=== PATIENT | female | born 1960 | race Caucasian/White ===

== ENCOUNTER → 2016-06-24 | Outpatient (CLI) | payer MEDICARE | LOC: WI 08:49 | PROVIDERS: ATTEND Specialist | DX: Z12.31 Encounter for screening mammogram for malignant neoplasm of breast (principal) | CPT/HCPCS: 77063; G0202; 77067 ==

== ENCOUNTER 2016-09-20 08:56 | Day surgery (SDC) | payer MEDICARE ==
[2016-09-20 09:36] LABS: POTASSIUM 4.4 mmol/L (3.6-5.0)
[2016-09-20] MEDS ORDERED: RINGERS SOLUTION,LACTATED 1,000 ML IV PRN (10:52)
[2016-09-20] MEDS ORDERED: LIDOCAINE 0.5% INJ-PF (5 MG/ML) 50 ML SDV SUBCUT PRN (10:52)
[2016-09-20] MEDS ORDERED: FENTANYL CITRATE INJ/PF 100 MCG/2 ML AMPUL ONE (11:06)
[2016-09-20] MEDS ORDERED: KETAMINE HCL INJ 500 MG/10 ML VIAL ONE (11:06)
[2016-09-20] MEDS ORDERED: PROPOFOL INJ 200 MG/20 ML VIAL IV ONE (11:07)
[2016-09-20] MEDS ORDERED: DEXMEDETOMIDINE INJ 80 MCG/20 ML VIAL IV ONE (11:07)
[2016-09-20] MEDS ORDERED: MIDAZOLAM 2 MG/2 ML INJ ONE (11:07)
[2016-09-20] MEDS ORDERED: DEXTROSE 5%-1/2 NORMAL SALINE 1,000 ML IV PRN (12:00)
[2016-09-20] MEDS ORDERED: ACETAMINOPHEN 325 MG TABLET PO PRN (12:01)
[2016-09-20] MEDS ORDERED: SIMETHICONE 80 MG TAB.CHEW PO PRN (12:05)
[2016-09-20] MEDS ORDERED: PROMETHAZINE HCL INJ 50 MG/1 ML VIAL IM PRN (12:08)
--- NOTE | 2016-09-20 12:28 | Operative Report ---
Operative Report DATE OF SURGERY: 09/20/16 Operative Report: The risks, benefits and alternatives of the procedure including risks of bleeding, perforation requiring surgery are explained to the patient detail and informed consent was obtained. Patient was taken to the operating room. Timeout was called. Propofol medications administered. A rectal examination was done which did not reveal any masses, tears or fissures. An Olympus video scope was inserted into the patient's rectum. The scope was then gradually advanced all the way to the cecum. The cecum was identified by the usual anatomical landmarks including the ileocecal valve as well as the appendiceal office. Photodocumentation is obtained. Prep is good. Scope was then sequentially pulled back. The rest segments of the colon including the ascending colon, hepatic flexure, transverse colon, splenic flexure, descending colon and finding to the rectosigmoid portions of the colon. Retroflexion maneuver was performed. The risks benefits and alternatives of the procedure explained to the patient in detail and informed consent is obtained.A GIF Olympus video scope was inserted into the patient's mouth and hypopharynx, the esophagus is identified intubated and insufflated, the scope was then advanced through the esophagus stomach and duodenum, retroflexion maneuver is done ,the esophagus stomach and first and second portions of the duodenum examined PREOPERATIVE DIAGNOSIS: Possible GI bleeding POSTOPERATIVE DIAGNOSIS: Mild right-sided inflammation status post biopsy. Internal hemorrhoids. Gastritis status post biopsy OPERATION: Colonoscopy with biopsy. EGD with biopsy SURGEON: KIKO HANCOCK ANESTHESIA: LMAC TISSUE REMOVED OR ALTERED: Gastric mucosal specimen obtained. Right side colon Mucosal specimens obtained COMPLICATIONS: None. ESTIMATED BLOOD LOSS: None. INTRAOPERATIVE FINDINGS: As described above. PROCEDURE: Patient tolerated the procedure well. No immediate postprocedure complications are noted. Patient discharged in good condition. Discharge date September 20, 2016. Discharge diet: Regular. Discharge activity: Regular. 2-3 week follow-up to discuss findings. We will wait on biopsies. Patient is instructed to call the office or proceed to the emergency room should there be any further problems or questions.
--- NOTE | 2016-09-20 12:29 | Operative Report ---
Operative Report DATE OF SURGERY: 09/20/16 PREOPERATIVE DIAGNOSIS: Possible GI bleeding POSTOPERATIVE DIAGNOSIS: Mild right-sided inflammation status post biopsy. Internal hemorrhoids. Gastritis status post biopsy OPERATION: Colonoscopy with biopsy. EGD with biopsy SURGEON: KIKO HANCOCK ANESTHESIA: LMAC TISSUE REMOVED OR ALTERED: Gastric mucosal specimen obtained. Right side colon Mucosal specimens obtained ESTIMATED BLOOD LOSS: None. INTRAOPERATIVE FINDINGS: As described above.
[2016-09-20 13:39] VITALS: BP 143/72
[2016-09-20] MEDS ORDERED: ONDANSETRON HCL INJ/PF 4 MG/2 ML SDV ONE (15:26)
[2016-09-20] MEDS ORDERED: GLYCOPYRROLATE INJ 0.4 MG/2 ML VIAL ONE (15:26)
[2016-09-20] MEDS ORDERED: METOCLOPRAMIDE HCL INJ/PF 10 MG/2 ML SDV ONE (15:26)
[2016-09-20] MEDS ORDERED: LIDOCAINE 2% INJ-PF (20 MG/ML) 10 ML AMPUL ONE (15:26)
== END 2016-09-20 13:30 | disposition home or self-care (01) ==
LOC: OROUT 08:56
PROVIDERS: ATTEND Internal Medicine Gastroenterology
PROC: 0DB68ZX Excision of Stomach, Via Natural or Artificial Opening Endoscopic, Diagnostic (ICD-10-PCS; principal; 2016-09-20 11:15)
PROC: 0DBF8ZX Excision of Right Large Intestine, Via Natural or Artificial Opening Endoscopic, Diagnostic (ICD-10-PCS; 2016-09-20 11:15)
DX: K29.50 Unspecified chronic gastritis without bleeding (principal); B96.81 Helicobacter pylori [H. pylori] as the cause of diseases classified elsewhere; K52.9 Noninfective gastroenteritis and colitis, unspecified; K64.8 Other hemorrhoids; J45.909 Unspecified asthma, uncomplicated; I10 Essential (primary) hypertension; E78.5 Hyperlipidemia, unspecified; M19.90 Unspecified osteoarthritis, unspecified site; E11.9 Type 2 diabetes mellitus without complications; E03.9 Hypothyroidism, unspecified; D64.9 Anemia, unspecified; Z79.899 Other long term (current) drug therapy; Z79.82 Long term (current) use of aspirin; Z79.84 Long term (current) use of oral hypoglycemic drugs; Z88.8 Allergy status to other drugs, medicaments and biological substances; Z79.51 Long term (current) use of inhaled steroids
CPT/HCPCS: 43239; 45380; 36415; 82947; 84132; 88342 ×2; 88305 ×2; J2250; J3490 ×3; J2765; J2405; J2704; 810; J3010

== ENCOUNTER → 2017-01-07 | Outpatient (CLI) | payer MEDICARE ==
--- NOTE | 2017-01-07 10:00 | WOMENS IMAGING REPORT ---
EXAM DESCRIPTION: 3D DX MAMMO LEFT UNILAT COMPLETED DATE/TIME: 01/07/2017 9:50 am REASON FOR STUDY: INTRADUCTAL CARCINOMA D05.12 INTRADUCTAL CARCINOMA IN SITU OF LEFT BREAST COMPARISON: 06/24/2016 and 02/20/2016. TECHNIQUE: Standard craniocaudal and mediolateral oblique images of the breast recorded using digita l acquisition and breast tomosynthesis. Additional true lateral images of the breast also acquired. LIMITATIONS: None. FINDINGS: BREAST: left MASSES: No suspicious masses. CALCIFICATIONS: No new or suspicious calcifications. ARCHITECTURAL DISTORTION: Stable surgical changes. DEVELOPING DENSITY: None. ASYMMETRY: None noted. OTHER: No other significant findings. Read with the assistance of CAD. .[facility] - R2 Cenova Version 1.3 .[facility] - R2 Cenova Version 1.3 .[facility] - R2 Cenova Version 2.4 .[facility] - R2 Cenova Version 2.4 .[facility] - R2 Lead Material Handler Version 9.2 IMPRESSION: Stable mammographic appearance of the left breast. Stable surgical changes. No worriso me findings. BREAST DENSITY: b. There are scattered areas of fibroglandular density. BIRAD: 2 Benign findings. RECOMMENDATION: RECOMMENDED FOLLOW UP: Post lumpectomy protocol. Note that the patient will be due for routine annual screening mammography of the right breast in 6 months (June 2017). COMMENT: The patient has been notified of the results by letter per SA requirements. Additional no tification policies are in place for contacting patient with suspicious or incomplete findings. Quality ID #225: The [employer] recommends an annual screening mammogram for women aged 40 years or over. This facility utilizes a reminder system to ensure that all patients receive reminder letters, and/or direct phone calls for appointments. This includes reminders for routine scr eening mammograms, diagnostic mammograms, or other Breast Imaging Interventions when appropriate. Th is patient will be placed in the appropriate reminder system. The [employer] (ACR) has developed recommendations for screening MRI of the breast s in certain patient populations, to be used in conjunction with mammography. Breast MRI surveillanc e may be appropriate for women with more than 20% lifetime risk of developing breast cancer as deter mined by genetic testing, significant family history of the disease, or history of mantle radiation f or Hodgkins Disease. ACR Practice Guidelines 2008. DBT Technology DBT is a type of tomographic mammography. With conventional mammography, overlapping breast tissue ma y make lesions difficult to detect, even with good compression. DBT uses an x-ray tube that rotates a round the breast, taking images at different angles. These images are then combined to create thin sl ices of the breast that the radiologist can view as a 3D reconstruction. The [employer]ologic unit can perform full-field digital mammograms (2D imaging); or DBT (3D imaging); or both, in a combination mode that quickly performs both the mammogram and the tomosynthesis scan while the breast is still compressed. PQRS 6045F: Fluoroscopic imaging is not utilized for breast tomosynthesis. TECHNICAL DOCUMENTATION: FINDING NUMBER: (1) ASSESSMENT: (1) JOB ID: [id number] [employer]- All Rights Reserved
== END ==
LOC: WI 08:18
PROVIDERS: ATTEND Internal Medicine
DX: D05.10 Intraductal carcinoma in situ of unspecified breast (principal)
CPT/HCPCS: G0279; G0206

== ENCOUNTER → 2017-02-03 | Outpatient (CLI) | payer MEDICARE ==
--- NOTE | 2017-02-03 10:36 | RADIOLOGY REPORT (SQ) ---
EXAM DESCRIPTION: CT HEAD WITHOUT COMPLETED DATE/TIME: 02/03/2017 9:19 am REASON FOR STUDY: NUMBNESS AND TINGLING OF RIGHT ARM R20.0 ANESTHESIA OF SKIN COMPARISON: None. TECHNIQUE: Axial images acquired through the brain without intravenous contrast. Images reviewed wi th bone, brain and subdural windows. Images stored on PACS. All CT scanners at this facility use dose modulation, iterative reconstruction, and/or weight based d osing when appropriate to reduce radiation dose to as low as reasonably achievable (ALARA). [facility]: Dose Right [facility]: CareDose [facility]: Dose Right [facility]: Teradose 4D [facility]: Smart plista RADIATION DOSE: Up-to-date CT equipment and radiation dose reduction techniques were employed. CTDIv ol: 49.0 mGy. DLP: 881 mGy-cm. mGy. LIMITATIONS: None. FINDINGS: VENTRICLES: Normal size and contour. CEREBRUM: No masses. No hemorrhage. No midline shift. No evidence for acute infarction. Normal gra y/white matter differentiation. No areas of low density in the white matter. CEREBELLUM: No masses. No hemorrhage. No alteration of density. No evidence for acute infarction. EXTRAAXIAL SPACES: No fluid collections. No masses. ORBITS AND GLOBE: No intra- or extraconal masses. Normal contour of globe without masses. CALVARIUM: No fracture. PARANASAL SINUSES: No fluid or mucosal thickening. SOFT TISSUES: No mass or hematoma. OTHER: No other significant finding. IMPRESSION: NORMAL BRAIN CT WITHOUT CONTRAST. EVIDENCE OF ACUTE STROKE: NO. COMMENT: Quality ID # [id number]: Final reports with documentation of one or more dose reduction techniques (e.g., Automated exposure control, adjustment of the mA and/or kV according to patient size, use of iterative reconstruction technique) TECHNICAL DOCUMENTATION: JOB ID: [id number] [employer]- All Rights Reserved
== END ==
LOC: RAD 09:06
PROVIDERS: ATTEND Physician Assistant
DX: R20.0 Anesthesia of skin (principal)
CPT/HCPCS: 70450

== ENCOUNTER → 2017-05-16 | Outpatient (CLI) | payer MEDICARE ==
--- NOTE | 2017-05-16 10:12 | RADIOLOGY REPORT (SQ) ---
EXAM DESCRIPTION: CHEST PA/LAT COMPLETED DATE/TIME: 05/16/2017 9:09 am REASON FOR STUDY: MODERATE PERSISTENT ASTHMA WITH (ACUTE) EXACERBATION (J45.41) COMPARISON: 05/31/2015. EXAM PARAMETERS: NUMBER OF VIEWS: two views TECHNIQUE: Digital Frontal and Lateral radiographic views of the chest acquired. RADIATION DOSE: NA LIMITATIONS: none FINDINGS: LUNGS AND PLEURA: No opacities, masses or pneumothorax. No pleural effusion. MEDIASTINUM AND HILAR STRUCTURES: No masses or contour abnormalities. HEART AND VASCULAR STRUCTURES: Heart normal size. No evidence for failure. BONES: No acute findings. HARDWARE: None in the chest. OTHER: No other significant finding. IMPRESSION: NO SIGNIFICANT RADIOGRAPHIC FINDING IN THE CHEST. TECHNICAL DOCUMENTATION: JOB ID: [id number] [employer]- All Rights Reserved
== END ==
LOC: RAD 08:54
PROVIDERS: ATTEND Nurse Practitioner Family
DX: J45.41 Moderate persistent asthma with (acute) exacerbation (principal)
CPT/HCPCS: 71046

== ENCOUNTER → 2017-06-25 | Outpatient (CLI) | payer MEDICARE ==
--- NOTE | 2017-06-25 10:37 | WOMENS IMAGING REPORT ---
EXAM DESCRIPTION: 3D DX MAMMO BILAT COMPLETED DATE/TIME: 06/25/2017 9:38 am REASON FOR STUDY: D05.10 INTRADUCTAL CARCINOMA IN SITU OF UNSPEC BREAST M81.0 AGE-RELATED OSTEOPORO SIS W/O CURRENT PATHOLOGICAL FRAC D05.12 INTRADUCTAL CARCINOMA IN SITU OF LEFT BREAST COMPARISON: 01/07/2017, 06/24/2016, 06/22/2015. TECHNIQUE: Standard craniocaudal and mediolateral oblique views of each breast recorded using digita l acquisition and breast tomosynthesis. Additional true lateral images of the left breast acquired with tomosynthesis. LIMITATIONS: None. FINDINGS: RIGHT BREAST MASSES: No suspicious masses. CALCIFICATIONS: No new or suspicious calcifications. ARCHITECTURAL DISTORTION: None. DEVELOPING DENSITY: None. ASYMMETRY: None noted. OTHER: No other significant findings. LEFT BREAST MASSES: No suspicious masses. CALCIFICATIONS: Benign calcifications. ARCHITECTURAL DISTORTION: Stable surgical changes. DEVELOPING DENSITY: None. ASYMMETRY: None noted. OTHER: No other significant finding. Read with the assistance of CAD: .[facility] - R2 Cenova Version 1.3 .[facility] - R2 Cenova Version 1.3 .[facility] - R2 Cenova Version 2.4 .[facility] - R2 Cenova Version 2.4 .[facility] - R2 Reproduction Artist Version 9.2 IMPRESSION: Stable mammographic appearance of both breasts. Stable surgical changes in the left bree ast. No worrisome findings. BREAST DENSITY: b. There are scattered areas of fibroglandular density. BIRAD: 2 Benign findings. RECOMMENDATION: RECOMMENDED FOLLOW UP: Post lumpectomy protocol. COMMENT: The patient has been notified of the results by letter per SA requirements. Additional no tification policies are in place for contacting patient with suspicious or incomplete findings. Quality ID #225: The [employer] recommends an annual screening mammogram for women aged 40 years or over. This facility utilizes a reminder system to ensure that all patients receive reminder letters, and/or direct phone calls for appointments. This includes reminders for routine scr eening mammograms, diagnostic mammograms, or other Breast Imaging Interventions when appropriate. Th is patient will be placed in the appropriate reminder system. The [employer] (ACR) has developed recommendations for screening MRI of the breast s in certain patient populations, to be used in conjunction with mammography. Breast MRI surveillanc e may be appropriate for women with more than 20% lifetime risk of developing breast cancer as deter mined by genetic testing, significant family history of the disease, or history of mantle radiation f or Hodgkins Disease. ACR Practice Guidelines 2008. DBT Technology DBT is a type of tomographic mammography. With conventional mammography, overlapping breast tissue ma y make lesions difficult to detect, even with good compression. DBT uses an x-ray tube that rotates a round the breast, taking images at different angles. These images are then combined to create thin sl ices of the breast that the radiologist can view as a 3D reconstruction. The [employer] unit can perform full-field digital mammograms (2D imaging); or DBT (3D imaging); or both, in a combination mode that quickly performs both the mammogram and the tomosynthesis scan while the breast is still compressed. PQRS 6045F: Fluoroscopic imaging is not utilized for breast tomosynthesis. TECHNICAL DOCUMENTATION: FINDING NUMBER: (1) ASSESSMENT: (1) JOB ID: [id number] [employer]- All Rights Reserved Reading location - IP/workstation name: [facility]
--- NOTE | 2017-06-25 10:43 | WOMENS IMAGING REPORT ---
EXAM DESCRIPTION: BONE DENSITY HIP/SPINE COMPLETED DATE/TIME: 06/25/2017 9:38 am REASON FOR STUDY: M81.0 OSTEOPOROSIS M81.0 AGE-RELATED OSTEOPOROSIS W/O CURRENT PATHOLOGICAL FRAC D 05.12 INTRADUCTAL CARCINOMA IN SITU OF LEFT BREAST COMPARISON: None. TECHNIQUE: Dual-Energy X-ray Absorptiometry (DEXA) of the AP Spine and Hip. LIMITATIONS: None. FINDINGS: LUMBAR SPINE: The bone mineral density (BMD) measured from L1-L4 in the AP projection correlates with a T-score of -0.1, which is normal as defined by the World Health Organization. HIP: The bone mineral density (BMD) measured in the left hip correlates with a T-score of 0.1, which is no rmal as defined by the World Health Organization. IMPRESSION: 1. LUMBAR SPINE: NORMAL. 2. HIP: NORMAL. COMMENT: The World Health Organization defines low BMD as follows: T-score: Normal: Greater than -1.0 Osteopenia: Between -1.0 and -2.5 Osteoporosis: Less than -2.5 without fractures Established osteoporosis: Less than -2.5 with fractures In general, you may wish to consider: Diagnosis Treatment Follow-up DEXA Normal BMD Prevention 2-3 years Osteopenia Prevention/Therapy 1-2 years Osteoporosis Therapy Yearly TECHNICAL DOCUMENTATION: JOB ID: [id number] [employer]- All Rights Reserved Reading location - IP/workstation name: [email or web address]
== END ==
LOC: WI 08:59
PROVIDERS: ATTEND Internal Medicine Hematology & Oncology
DX: M81.0 Age-related osteoporosis without current pathological fracture (principal); D05.12 Intraductal carcinoma in situ of left breast
CPT/HCPCS: 77066; 77080; G0279; 77062

== ENCOUNTER → 2017-08-22 | Outpatient (CLI) | payer MEDICARE ==
--- NOTE | 2017-08-22 11:00 | RADIOLOGY REPORT (SQ) ---
EXAM DESCRIPTION: CT SINUSES FOR ENT COMPLETED DATE/TIME: 08/22/2017 9:11 am REASON FOR STUDY: J32.9 CHRONIC SINUSITIS, UNSPECIFIED J32.9 CHRONIC SINUSITIS, UNSPECIFIED COMPARISON: CT brain 02/03/2017 TECHNIQUE: Noncontrast scanning through the paranasal sinuses using bone algorithm. Reconstructed MPR images reviewed. All images stored on PACS. Images acquired for image guided surgery. All CT scanners at this facility use dose modulation, iterative reconstruction, and/or weight based d osing when appropriate to reduce radiation dose to as low as reasonably achievable (ALARA). [facility]: Dose Right [facility]: CareDose [facility]: Dose Right [facility]: Teradose 4D [facility]: Voölks RADIATION DOSE: 47 mGy. FINDINGS: NASAL PASSAGES: Clear. No polyps or masses. OSTEOMEATAL UNITS AND NASOFRONTAL DUCTS: Opacified with fluid and mucous membrane thickening. MAXILLARY SINUSES: Near completely opacified bilaterally with opacified maxillary sinus outlets ETHMOID SINUSES: Completely opacified ethmoid air cells SPHENOID SINUSES: Hypoplastic sphenoid sinuses with circumferential mucous membrane thickening, best shown on sagittal images 144-160. No sphenoethmoid air cells or pneumatized pterygoid recess. No pne umatized dorsal sella. FRONTAL SINUSES: Hypoplastic right frontal sinus completely opacified. No left frontal sinus. MASTOID AIR CELLS: There is bilateral middle ear and mastoid air cell fluid. No aggressive bony nadya neralization of the ossicles or scutum. Internal auditory canals, inner ear structures grossly intac t ORBITS: Normal and symmetrical. NASAL SEPTUM: Mild left nasal septal deviation with small left nasal septal spur TEMPOROMANDIBULAR JOINTS: Normal. TURBINATES: No pneumatized turbinates. MUCOPERIOSTEAL THICKENING: No. MUCOCELE: No. OTHER: No other significant findings. IMPRESSION: Diffuse inflammatory changes throughout the paranasal sinuses, middle ear cavities and m astoid air cells TECHNICAL DOCUMENTATION: JOB ID: [id number] Quality ID # [id number]: Final reports with documentation of one or more dose reduction techniques (e.g., Au tomated exposure control, adjustment of the mA and/or kV according to patient size, use of iterative reconstruction technique) 2010 [employer]- All Rights Reserved Reading location - IP/workstation name: [facility]
== END ==
LOC: RAD 09:08
PROVIDERS: ATTEND Otolaryngology
DX: J32.9 Chronic sinusitis, unspecified (principal)
CPT/HCPCS: 70486

== ENCOUNTER → 2017-10-07 | Outpatient (CLI) | payer MEDICARE ==
--- NOTE | 2017-10-07 09:44 | RADIOLOGY REPORT (SQ) ---
EXAM DESCRIPTION: CT CHEST WITH COMPLETED DATE/TIME: 10/07/2017 9:32 am REASON FOR STUDY: INRADUCTAL CARCINOMA IN SITU OF UNSPEC BREAST (D05.10), SOB (R06.02), COUGH D05.10 INTRADUCTAL CARCINOMA IN SITU OF UNSPECIFIED BREAST R06.02 SHORTNESS OF BREATH R05 COUGH COMPARISON: CT chest 08/30/2015 Multiple mammograms since 2015 TECHNIQUE: CT scan of the chest performed using helical scanning technique with dynamic intravenous contrast injection. Images reviewed with lung, soft tissue and bone windows. Reconstructed coronal and sagittal MPR images reviewed. All images stored on PACS. All CT scanners at this facility use dose modulation, iterative reconstruction, and/or weight based d osing when appropriate to reduce radiation dose to as low as reasonably achievable (ALARA). [facility]: Dose Right [facility]: CareDose [facility]: Dose Right [facility]: Teradose 4D [facility]: iogyn CONTRAST TYPE AND DOSE: contrast/concentration: Isovue 370.00 mg/ml; Total Contrast Delivered: 80.0 ml; Total Saline Delivered: 55.0 ml RENAL FUNCTION: Creatinine 0.5 RADIATION DOSE: CT Rad equipment meets quality standard of care and radiation dose reduction techniq ues were employed. CTDIvol: 19.5 mGy. DLP: 758 mGy-cm. . LIMITATIONS: None. FINDINGS: LUNGS AND PLEURA: No opacities, nodules, masses. No pneumothorax. No effusions. HILAR AND MEDIASTINAL STRUCTURES: No identified masses or abnormal nodes. HEART AND VASCULAR STRUCTURES: No aneurysm or dissection. No central pulmonary emboli. No pericardi al effusion. HARDWARE: None in the chest. UPPER ABDOMEN: Fatty liver. Small hiatal hernia. THYROID AND OTHER SOFT TISSUES: Thyroid unremarkable. Stable post therapeutic changes upper outer qu adrant left breast BONES: No significant finding. OTHER: No other significant finding. IMPRESSION: POST THERAPEUTIC CHANGES LEFT UPPER OUTER QUADRANT BREAST. OTHERWISE, NORMAL CT OF THE CHEST WITH IV CONTRAST. TECHNICAL DOCUMENTATION: JOB ID: [id number] Quality ID # [id number]: Final reports with documentation of one or more dose reduction techniques (e.g., Au tomated exposure control, adjustment of the mA and/or kV according to patient size, use of iterative reconstruction technique) 2010 [employer]- All Rights Reserved Reading location - IP/workstation name: [facility]
== END ==
LOC: RAD 09:06
PROVIDERS: ATTEND Internal Medicine Hematology & Oncology
DX: D05.12 Intraductal carcinoma in situ of left breast (principal); R06.02 Shortness of breath; R05 Cough
CPT/HCPCS: 71260; 82565

== ENCOUNTER 2017-12-26 05:29 | Day surgery (SDC) | payer MEDICARE ==
[2017-12-24 12:49] LABS: HEMATOCRIT 40.2 % (36.0-47.0); HEMOGLOBIN 13.6 g/dL (12.0-15.5); MEAN CORPUSCULAR HEMOGLOBIN 26.8 pg (27.0-33.4); MEAN CORPUSCULAR HGB CONC 33.7 g/dL (32.0-36.0); MEAN CORPUSCULAR VOLUME 80 fl (80-97); PLATELET COUNT 272 10^3/uL (150-450); RED BLOOD COUNT 5.06 10^6/uL (3.72-5.28); RED CELL DISTRIBUTION WIDTH 17.5 % (11.5-14.0); WHITE BLOOD COUNT 11.1 10^3/uL (4.0-10.5)
[2017-12-24 13:20] LABS: ANION GAP 12 (5-19); BLOOD UREA NITROGEN 13 mg/dL (7-20); CALCIUM 9.3 mg/dL (8.4-10.2); CARBON DIOXIDE 28 mmol/L (22-30); CHLORIDE 101 mmol/L (98-107); GLUCOSE 111 mg/dL (75-110); POTASSIUM 4.1 mmol/L (3.6-5.0); SODIUM 141.3 mmol/L (137-145)
--- NOTE | 2017-12-24 13:53 | EKG REPORT ---
SEVERITY:- NORMAL ECG - SINUS RHYTHM : Confirmed by: Boubacar Serna MD 24-Dec-2017 13:52:35
[~2017-12-26 05:29] MED LIST: CEFAZOLIN 2 GM/D5W RTU 2 GM/50 ML RTUPB IV ONE; CEFAZOLIN 2 GM/D5W RTU 2 GM/50 ML RTUPB IV PRN; LACTATED RINGERS 1000 ML IV PRN; LIDOCAINE 0.5% INJ-PF (5 MG/ML) 50 ML SDV SUBCUT PRN
--- NOTE | 2017-12-26 06:04 | RADIOLOGY REPORT (SQ) ---
EXAM DESCRIPTION: XR CHEST 1 VIEW COMPLETED DATE/TME: 12/26/2017 00:00 CLINICAL HISTORY: 57 years Female, preop screening COMPARISON: Generated [id number]. NUMBER OF VIEWS/TECHNIQUE: 1/AP FINDINGS: Adequate lung volume, clear parenchyma, normal cardiac silhouette, atherosclerosis, and intact bony thorax. IMPRESSION: No acute cardiopulmonary findings.
[2017-12-26] MEDS ORDERED: ALBUTEROL SULFATE 0.083% NEB 2.5 MG/3 ML AMPUL NEB ONE (06:05)
[2017-12-26 06:32] LABS: POTASSIUM 3.9 mmol/L (3.6-5.0)
[2017-12-26] MEDS ORDERED: FENTANYL CITRATE INJ/PF 250 MCG/5 ML AMPULE ONE (07:11)
[2017-12-26] MEDS ORDERED: MIDAZOLAM 2 MG/2 ML INJ ONE (07:11)
[2017-12-26] MEDS ORDERED: HYDROMORPHONE HCL INJ/PF 2 MG/ML AMPULE ONE (07:11)
[2017-12-26] MEDS ORDERED: EPHEDRINE SULFATE INJ 50 MG/1 ML AMPULE ONE (07:12)
[2017-12-26] MEDS ORDERED: PROPOFOL INJ 200 MG/20 ML VIAL IV ONE (07:12)
[2017-12-26] MEDS ORDERED: ACETAMINOPHEN 1,000 MG/100 ML RTUPB IV ONE (07:12)
[2017-12-26] MEDS ORDERED: FAMOTIDINE INJ/PF 20 MG/2 ML SDV IV ONE (07:12)
[2017-12-26] MEDS ORDERED: METOCLOPRAMIDE HCL INJ/PF 10 MG/2 ML SDV ONE (07:14)
[2017-12-26] MEDS ORDERED: BUPIVACAINE HCL 0.5%/EPI 1:200000 INJ 1.8 ML CARTRIDGE ONE (07:17)
[2017-12-26] MEDS ORDERED: BUPIVACAINE HCL 0.5%-EPI 1:200000 INJ/PF 30 ML VIAL ONE (07:17)
[2017-12-26] MEDS ORDERED: OXYMETAZOLINE HCL 0.05% NASAL SPRAY 15 ML BOTTLE ONE ×2 (07:20→11:50)
[2017-12-26] MEDS ORDERED: CIPROFLOXACIN HCL/FLUOCINOLONE 0.3%/0.025% OTIC ONE (07:28)
[2017-12-26] MEDS ORDERED: MINERAL OIL (STERILE) 10 ML VIAL ONE (07:28)
[2017-12-26] MEDS ORDERED: ALBUTEROL SULFATE HFA (90 MCG/PUFF) 200 PUFF/8.5 GM MDI IH ONE (07:53)
[2017-12-26] MEDS ORDERED: BACITRACIN ZINC OINTMENT 15 GM ONE (11:34)
[2017-12-26] MEDS ORDERED: MEPERIDINE HCL/PF INJ 25 MG/1 ML DISP.SYRIN IV PRN (11:39)
[2017-12-26] MEDS ORDERED: PROMETHAZINE HCL INJ 25 MG/1 ML VIAL IV PRN ×3 (11:39→13:15)
[2017-12-26] MEDS ORDERED: OXYCODONE-ACETAMINOPHEN 5-325 MG TABLET PO PRN ×2 (11:39)
[2017-12-26] MEDS ORDERED: DIPHENHYDRAMINE HCL 50 MG/ML VIAL IV PRN (11:39)
[2017-12-26] MEDS ORDERED: MORPHINE SULFATE 10 MG/ML INJ IV PRN ×2 (11:39→13:15)
[2017-12-26] MEDS ORDERED: FENTANYL CITRATE INJ/PF 100 MCG/2 ML AMPUL IV PRN ×3 (11:39)
[2017-12-26] MEDS ORDERED: ONDANSETRON HCL INJ/PF 4 MG/2 ML SDV IV PRN (13:15)
[2017-12-26] MEDS ORDERED: PHENYLEPHRINE HCL INJ/PF 10 MG/1 ML SDV ONE (14:56)
[2017-12-26] MEDS ORDERED: GLYCOPYRROLATE 1 MG/5 ML SYRINGE ONE (14:56)
[2017-12-26] MEDS ORDERED: ONDANSETRON HCL INJ/PF 4 MG/2 ML SDV ONE (14:56)
[2017-12-26] MEDS ORDERED: SUCCINYLCHOLINE CHLORIDE INJ 200 MG/10 ML VIAL ONE (14:56)
[2017-12-26] MEDS ORDERED: DEXAMETHASONE SOD PHOSPHATE INJ 4 MG/1 ML VIAL ONE (14:56)
[2017-12-26] MEDS ORDERED: ROCURONIUM BROMIDE INJ 50 MG/5 ML VIAL IV ONE (14:56)
[2017-12-26] MEDS ORDERED: ONDANSETRON 4 MG TAB.RAPDIS PO PRN (15:44)
[2017-12-26] MEDS: HYDROCODONE/ACETAMINOPHEN 5-325 MG TABLET PO PRN (17:47)
[2017-12-26] MEDS: RINGERS SOLUTION,LACTATED 1,000 ML IV PRN ×2 (17:50→20:55)
[2017-12-27] MEDS: HYDROCODONE/ACETAMINOPHEN 5-325 MG TABLET PO PRN (04:35)
[2017-12-27] MEDS: RINGERS SOLUTION,LACTATED 1,000 ML IV PRN (06:24)
[2017-12-27 09:36] VITALS: BP 113/50
--- NOTE | 2017-12-29 11:02 | OPERATIVE REPORT E ---
Operative Report NAME: SANJAY OROZCO : 1960 AGE: 57Y DATE OF SURGERY: 12/26/2017 ROOM: 206 PREOPERATIVE DIAGNOSES: 1. Acute recurrent sinusitis. 2. Chronic sinusitis. 3. Sinonasal polyps/polyp disease. 4. Nasoseptal deviation, acquired. 5. Chronic nasal dyspnea. 6. Bilateral inferior turbinate hypertrophy. 7. Bilateral middle turbinate hypertrophy. 8. Chronic bilateral eustachian tube dysfunction. 9. Bilateral middle ear serous effusions/chronic otitis media with effusions. 10. Chronic hearing loss. POSTOPERATIVE DIAGNOSES: 1. Acute recurrent sinusitis. 2. Chronic sinusitis. 3. Sinonasal polyps/polyp disease. 4. Nasoseptal deviation, acquired. 5. Chronic nasal dyspnea. 6. Bilateral inferior turbinate hypertrophy. 7. Bilateral middle turbinate hypertrophy. 8. Chronic bilateral eustachian tube dysfunction. 9. Bilateral middle ear serous effusions/chronic otitis media with effusions. 10. Chronic hearing loss. OPERATIONS PERFORMED: 1. Image guidance functional endoscopic sinus surgery via bilateral transnasal rigid surgical endoscopy as follows: 2. Bilateral maxillary antrostomies via bilateral transnasal rigid surgical endoscopy. 3. Bilateral total ethmoidectomies (anterior and posterior ethmoidectomies) with tissue removal for pathology evaluation and this was performed via bilateral transnasal rigid surgical endoscopy. 4. Right transnasal/intranasal frontal sinus sinusotomy via right transnasal rigid surgical endoscopy. 5. Bilateral eustachian tube balloon plasty via bilateral transnasal rigid surgical endoscopy. 6. Bilateral image guidance transnasal/intranasal sphenoid balloon Sinuplasty via bilateral transnasal rigid surgical endoscopy. 7. Septoplasty. 8. Bilateral inferior turbinate reduction using a submucous resection technique. 9. Bilateral middle turbinate reductions via bilateral transnasal rigid surgical endoscopy. 10. Bilateral myringotomies under microscopy with suctioning/evacuation of serous middle ear effusions. 11. Excessive time required for patient positioning before and during surgery due to excessive obesity with BMI of 141.5. SURGEON: STEF VALLEJO D.O. FINDINGS: 1. There was sinonasal polyps/polyp tissue noted around the area of the middle turbinates and OMC areas. 2. Left nasal septal deviation involving bone and cartilage. 3. Bilateral inferior turbinate hypertrophy. 4. Bilateral middle turbinate hypertrophy. 5. Bilateral serous-appearing middle ear effusions that were completely filling the middle ear space. The tympanic membranes were otherwise intact. 6. Sinonasal polyps/polyp disease was also noted in the area of the ethmoid sinus distribution bilateral. 7. Large left maxillary crest/septal spur. ANESTHETIC: General endotracheal tube. ANESTHESIA STAFF: VIVIANA SANDERS ESTIMATED BLOOD LOSS: 100 mL. FLUIDS: 3200 mL. URINE OUTPUT: 600 mL. COMPLICATIONS: None. DRAINS: None. COUNTS: Sponge count verified. Needle count verified. MATERIALS FORWARDED SPECIMEN: Left and right nasal passage/OMC/ethmoid area polyp tissue for rule out sinonasal polyps. INDICATIONS: This is a 57-year-old white female patient who was seen and evaluated in the [facility] office. The patient had been referred for and she complained of a history of chronic sinus, nasal, allergy, and ear disease/problems over the years. The patient reported a history of acute recurrent sinusitis episodes requiring antibiotics each year over the years as well as chronic sinus disease symptoms/sinusitis over the years. The patient also complains of chronic ear disease with middle ear effusions over the years, which cause difficulty with hearing. The patient complains of symptoms consistent with chronic eustachian tube dysfunction and allergies. The patient also complains of chronic nasal dyspnea over the years. The patient underwent extensive workup to include clinic flexible endoscopy and CT sinus imaging. There was a very extensive discussion with the patient to address the sinus, nasal, ear, eustachian tube complex, and allergy disease processes. Recommendation and plan was for image guidance, functional endoscopic sinus surgery, septoplasty, inferior and middle turbinate reductions, eustachian tube balloon plasty, and evaluation under microscopy of the ears with performance of myringotomy incisions with evacuation/suctioning of the middle ear effusions versus placement of ear tubes/BMTT. The patient voiced an understanding of all that had been discussed and was in agreement. The risks and complications of all of the procedures were all discussed in detail with the patient. She voiced an understanding of the described surgical plan, agreed to proceed, and consent was obtained. PROCEDURE: The patient was taken to the main operating room and placed on the operating room table in the supine position. Appropriate monitors were placed. Of note, there was excessive time involved with getting the patient transitioned onto the operating room table and positioned appropriately for general anesthesia, intubation, and surgery due to her excessive obesity and body habitus with BMI of 141.5. Once the patient was safely positioned and secured on the operating room table, the patient underwent induction of general anesthesia followed by transoral intubation. The patient was further positioned for ear, nasal, and sinus surgery. The patient then underwent a nasal examination with injection of local anesthetic with epinephrine to establish a nasal block. There were 2 Afrin-soaked neuro patties placed per nasal passage. The operating room microscope was brought into position and the ears were examined under it through an ear speculum. Cerumen was clear on each side. There were complete serous-appearing middle ear effusions present bilateral. There was a myringotomy incision performed bilateral at the posterior/inferior aspect followed by extensive suctioning and evacuation of seromucoid middle ear effusions. At this point, Otovel ear drops were placed in each side. Next, the microscope was withdrawn. At this point, the patient was prepped and draped in the usual fashion for nasal surgery. The Afrin-soaked neuro patties were removed from the patient's nose. The 0-degree rigid surgical endoscope was used bilateral in a transnasal fashion along with the eustachian tube balloon-plasty system to perform eustachian tube balloon plasty on each side. The balloon was inflated to 12 atmospheres within each eustachian tube complex and held in place for 2 minutes per side. Once complete, the balloon system was withdrawn along with the rigid surgical endoscope. At this point, the patient and the table were repositioned for sinus nasal surgery. The image guidance system was set up and tested appropriately before beginning this portion of the case.She underwent a hemitransfixion incision with elevation of the mucoperichondrial and periosteal flaps without difficulty. The bony cartilaginous junction was identified and divided with removal of the most deviated portions of septal cartilage and bone. There was a left maxillary crest/septal spur that was identified and removed using a V-chisel without difficulty. There was a small mucosal rent noted during this process due to the excessive nature of the maxillary crest spur and the tenuous/very thin nature of the mucosa in this area. There was a greater than 1.5 x 1.5 cm cartilaginous L-strut preserved. At this point, the turbinate bipolar wand was used to make 2 passes in each inferior turbinate. The turbinate microdebrider system at a setting of 3000 RPM was next used to perform submucous resection in each inferior turbinate. This was followed by use of the Emory elevator to outfracture each inferior turbinate. At this point, the image guidance sinus surgery portion of the case was addressed in the following manner. With use of the bilateral transnasal rigid surgical endoscope, microdebrider system at a setting of 3000 RPM, and sinus surgical instrumentation, the middle turbinate reductions were performed. This was followed by removal of sinonasal polyp tissue in the area of the middle turbinate/OMC/ethmoid sinus distributions bilateral. Next, the maxillary antrostomies were performed without difficulty. This was followed by performing the total ethmoidectomies (anterior and posterior ethmoidectomies) bilateral. Again, there was tissue removed during this process for pathology evaluation for rule out polyp tissue. The rigid endoscope system was used in a transnasal/intranasal fashion along with sinus surgical instrumentation to perform the right frontal sinus sinusotomy. Once complete, the sinuses were again thoroughly irrigated. Afrin-soaked neuro patties were placed into the surgical sites on both sides. At this point, the sphenoid image guidance balloon Sinuplasty system along with rigid bilateral transnasal surgical endoscopy was used to balloon dilate each sphenoid os without difficulty. Once complete, this balloon system was withdrawn. At this point, the Afrin-soaked neuro patties were removed and ample irrigation was performed with reasonable hemostasis noted. A Propel frontal sinus contour steroid-eluting stent was placed under direct visualization into the right frontal sinus sinusotomy site. This was followed by placement of 1 Propel ethmoid steroid-eluting stent per side under direct surgical endoscopy visualization. The patient then had the hemitransfixion incision reapproximated with chromic suture. The margins of the left mid posterior rent were well approximated. There was 1 Saldana silicone nasal splint with bacitracin ointment placed per side and these were secured at the caudal aspect with Prolene suture. The patient's nose was then cleaned and dried followed by placement of FloSeal into each nasal passage. The patient was then returned to the anesthesia staff and was allowed to emerge from general anesthesia. The patient was extubated in the main operating room and was then transported to the post-anesthesia recovery unit in stable condition. There were no complications. DICTATING PHYSICIAN: STEF VALLEJO D.O. [id number] PHY#: [id number] ID: [id number] JOB#: [id number] ACCT: [id number] cc:STEF VALLEJO D.O. > MTDD
== END 2017-12-27 09:54 | disposition home or self-care (01) ==
LOC: OROUT 05:29 → 2N 15:47 → OROUT 12-27 09:54
PROVIDERS: ATTEND Otolaryngology
DX: J34.2 Deviated nasal septum (principal); R04.0 Epistaxis; J32.9 Chronic sinusitis, unspecified; R09.82 Postnasal drip; G47.33 Obstructive sleep apnea (adult) (pediatric); H69.83 Other specified disorders of Eustachian tube, bilateral; R06.09 Other forms of dyspnea; H61.23 Impacted cerumen, bilateral; J34.3 Hypertrophy of nasal turbinates; H65.23 Chronic serous otitis media, bilateral; J45.909 Unspecified asthma, uncomplicated; M19.90 Unspecified osteoarthritis, unspecified site; E11.9 Type 2 diabetes mellitus without complications; Z86.69 Personal history of other diseases of the nervous system and sense organs; Z85.828 Personal history of other malignant neoplasm of skin; Z85.3 Personal history of malignant neoplasm of breast
CPT/HCPCS: 69436; 31276; 31255; 31256; 30520; 30140; 93005; 36415 ×2; 82962; 82947; 84132; 85027; 80048; 88305 ×2; 71045; 93010; 94762 ×2; 94640; G0378 ×2; J2250; J3490 ×8; J1100; J3010; J2765; J1170; J2370; J0330; J2405; J7120 ×2; J2704; S0028; A9270 ×3; J0690; J0131; 160

== ENCOUNTER → 2018-03-03 | Outpatient (CLI) | payer MEDICARE ==
--- NOTE | 2018-03-03 08:15 | RADIOLOGY REPORT (SQ) ---
EXAM DESCRIPTION: U/S ABDOMEN COMPLETE W/O DOP COMPLETED DATE/TIME: 03/03/2018 7:50 am REASON FOR STUDY: RUQ PAIN (R10.11) R10.11 RIGHT UPPER QUADRANT PAIN COMPARISON: None. TECHNIQUE: Dynamic and static grayscale images acquired of the abdomen and recorded on PACS. Additio nal selected color Doppler and spectral images recorded. LIMITATIONS: None. FINDINGS: PANCREAS: No masses. Visualized pancreatic duct normal caliber. LIVER: Fatty liver. The liver measures 20.0 cm in length, prominent in size. LIVER VASCULATURE: Normal directional flow of the main portal vein and hepatic veins. GALLBLADDER: No stones. The gallbladder wall measures 1.8 mm, normal wall thickness. No pericholecys tic fluid. ULTRASOUND-DETECTED ALONSO'S SIGN: Negative. INTRAHEPATIC DUCTS AND COMMON DUCT: CBD measures 8.0 mm in diameter and is dilated. The intrahepati c ducts normal caliber. No filling defects. INFERIOR VENA CAVA: Normal flow. AORTA: No aneurysm. RIGHT KIDNEY: The right kidney measures 11.8 cm in length, normal size. Normal echogenicity. No solid or suspicious masses. No hydronephrosis. No calcifications. LEFT KIDNEY: The left kidney measures 10.5 cm in length, normal size. Normal echogenicity. No so lid or suspicious masses. No hydronephrosis. No calcifications. SPLEEN: The spleen measures 10.0 cm in length, normal size. No solid masses. PERITONEAL AND PLEURAL SPACES: No ascites or effusions. OTHER: No other significant finding. IMPRESSION: 1. Fatty liver. Hepatomegaly. 2. The common bile duct measures 8.0 mm in diameter and is dilated. Further evaluation with MRCP/ M RI Abdomen and or CT abdomen with and without contrast. TECHNICAL DOCUMENTATION: JOB ID: [id number] [employer]- All Rights Reserved Reading location - IP/workstation name: [email or web address]
== END ==
LOC: WI 07:19
PROVIDERS: ATTEND Physician Assistant
DX: R10.11 Right upper quadrant pain (principal)
CPT/HCPCS: 76700

== ENCOUNTER → 2018-03-10 | Outpatient (CLI) | payer MEDICARE ==
--- NOTE | 2018-03-10 10:31 | RADIOLOGY REPORT (SQ) ---
EXAM DESCRIPTION: MRI ABDOMEN COMBO COMPLETED DATE/TIME: 03/10/2018 9:40 am REASON FOR STUDY: R16.0 HEPATOMEGALY, NOT ELSEWHERE CLASSIFIED R16.0 HEPATOMEGALY, NOT ELSEWHERE CL ASSIFIED COMPARISON: CT chest 10/07/2017 Abdominal ultrasound 03/03/2018 TECHNIQUE: Multiplanar multisequence imaging performed without and with contrast including sagittal, axial and coronal T2, axial T1, axial gradient fat sat T1, axial, sagittal and coronal fat sat T1 po st contrast. CONTRAST TYPE AND DOSE: 20 mL Dotarem. RENAL FUNCTION: GFR > 60. LIMITATIONS: None. FINDINGS: LIVER: Normal size. No masses. No dilated intrahepatic or extrahepatic ducts. CBD normal, 8 to 9 mm in diameter, no filling defects worrisome for choledocholithiasis. No stricture. SPLEEN: Normal size. No focal lesions. PANCREAS: No masses. No adjacent inflammation or peripancreatic fluid collections. Pancreatic duct no t dilated. GALLBLADDER: No masses. No stones. No gallbladder wall thickening or pericholecystic fluid. ADRENAL GLANDS: No significant masses or asymmetry. RIGHT KIDNEY AND URETER: No masses. No hydronephrosis. LEFT KIDNEY AND URETER: No masses. No hydronephrosis. AORTA AND VESSELS: No aneurysm. No dissection. Renal arteries, SMA, celiac without stenosis. RETROPERITONEUM: No retroperitoneal adenopathy, hemorrhage or masses. BOWEL: Not well seen ABDOMINAL WALL AND PERITONEUM: No hernias. No free fluid. BONES: Unremarkable OTHER: No other significant finding. IMPRESSION: NORMAL MRI OF THE ABDOMEN WITHOUT AND WITH CONTRAST. TECHNICAL DOCUMENTATION: JOB ID: [id number] [employer]- All Rights Reserved Reading location - IP/workstation name: [email or web address]
== END ==
LOC: RAD 08:33
PROVIDERS: ATTEND Physician Assistant
DX: R16.0 Hepatomegaly, not elsewhere classified (principal)
CPT/HCPCS: 82565; 74183; A9576

== ENCOUNTER → 2018-06-30 | Outpatient (CLI) | payer MEDICARE ==
--- NOTE | 2018-06-30 11:40 | WOMENS IMAGING REPORT ---
EXAM DESCRIPTION: 3D DX MAMMO BILAT COMPLETED DATE/TIME: 06/30/2018 9:23 am REASON FOR STUDY: D05.10 INTRADUCTAL CARCINOMA IN SITU OF UNSPECIFIED BREAST D05.10 INTRADUCTAL CAR CINOMA IN SITU OF UNSPECIFIED BREAST COMPARISON: Multiple since 2016 TECHNIQUE: Standard craniocaudal, and mediolateral oblique views of each breast recorded using digit al acquisition and breast tomosynthesis. Additional left breast 90 mediolateral view LIMITATIONS: None. FINDINGS: RIGHT BREAST MASSES: No suspicious masses. CALCIFICATIONS: No new or suspicious calcifications. ARCHITECTURAL DISTORTION: None. DEVELOPING DENSITY: None. ASYMMETRY: None noted. OTHER: No other significant findings. LEFT BREAST MASSES: No suspicious masses. CALCIFICATIONS: There are faint dystrophic calcifications within the lumpectomy site, marked with a c ircle. Further workup with compression magnification views left breast in the CC and 90 mediolateral orientations recommended ARCHITECTURAL DISTORTION: Postoperative architectural distortion in the upper outer quadrant at the 2 to 3 o'clock position DEVELOPING DENSITY: None. ASYMMETRY: None noted. OTHER: No other significant finding. Read with the assistance of CAD: .[facility] - R2 C[employer]ova Version 1.3 .[facility] - R2 Cenova Version 2.1 .[facility] - R2 Cenova Version 2.4 .[facility] R2 Cenova Version 2.4 .[facility] - R2 Siphon Operator Version 9.2 IMPRESSION: No mammographic/ tomosynthesis evidence for malignancy right breast Faint calcifications at the lumpectomy site left breast, for which additional diagnostic magnificatio n mammograms are recommended BREAST DENSITY: a. The breasts are almost entirely fatty. BIRAD: 0 Incomplete: Needs additional imaging evaluation and/or prior mammograms for comparison. RECOMMENDATION: RECOMMENDED FOLLOW UP: Additional left breast diagnostic compression magnification m ammograms SPECIFIC INTERVENTION/IMAGING/CONSULTATION RECOMMENDED:Additional left breast diagnostic compression magnification mammograms COMMUNICATION:Patient notified by letter COMMENT: The patient has been notified of the results by letter per MQSA requirements. Additional no tification policies are in place for contacting patient with suspicious or incomplete findings. Quality ID #[id number]: The [employer] recommends an annual screening mammogram for women aged 40 years or over. This facility utilizes a reminder system to ensure that all patients receive reminder letters, and/or direct phone calls for appointments. This includes reminders for routine scr eening mammograms, diagnostic mammograms, or other Breast Imaging Interventions when appropriate. Th is patient will be placed in the appropriate reminder system. The [employer] (ACR) has developed recommendations for screening MRI of the breast s in certain patient populations, to be used in conjunction with mammography. Breast MRI surveillanc e may be appropriate for women with more than 20% lifetime risk of developing breast cancer as deter mined by genetic testing, significant family history of the disease, or history of mantle radiation f or Hodgkins Disease. ACR Practice Guidelines 2008. DBT Technology DBT is a type of tomographic mammography. With conventional mammography, overlapping breast tissue ma y make lesions difficult to detect, even with good compression. DBT uses an x-ray tube that rotates a round the breast, taking images at different angles. These images are then combined to create thin sl ices of the breast that the radiologist can view as a 3D reconstruction. The [employer] unit can perform full-field digital mammograms (2D imaging); or DBT (3D imaging); or both, in a combination mode that quickly performs both the mammogram and the tomosynthesis scan while the breast is still compressed. PQRS 6045F: Fluoroscopic imaging is not utilized for breast tomosynthesis. TECHNICAL DOCUMENTATION: FINDING NUMBER: (1) ASSESSMENT: (1) JOB ID: [id number] [employer]- All Rights Reserved Reading location - IP/workstation name: [email or web address]
== END ==
LOC: WI 09:10
PROVIDERS: ATTEND Internal Medicine Hematology & Oncology
DX: D05.11 Intraductal carcinoma in situ of right breast (principal)
CPT/HCPCS: 77066; G0279; 77062

== ENCOUNTER → 2020-01-05 | Outpatient (CLI) | payer MEDICARE ==
[2020-01-05 10:41] LABS: ABSOLUTE BASOPHILS # (AUTO) 0.1 10^3/uL (0.0-0.2); ABSOLUTE EOSINOPHILS # (AUTO) 0.1 10^3/uL (0.0-0.6); ABSOLUTE LYMPHOCYTES (AUTO) 1.8 10^3/uL (0.5-4.7); ABSOLUTE MONOCYTES (AUTO) 0.8 10^3/uL (0.1-1.4); ABSOLUTE NEUT (AUTO) 8.4 10^3/uL (1.7-8.2); BASOPHILS % (AUTO) 0.8 % (0-2); EOSINOPHILS % (AUTO) 1.3 % (0-6); HEMATOCRIT 40.6 % (36.0-47.0); HEMOGLOBIN 13.8 g/dL (12.0-15.5); LYMPHOCYTES % (AUTO) 16.3 % (13-45); MEAN CORPUSCULAR HEMOGLOBIN 27.2 pg (27.0-33.4); MEAN CORPUSCULAR HGB CONC 33.9 g/dL (32.0-36.0); MEAN CORPUSCULAR VOLUME 80 fl (80-97); PLATELET COUNT 271 10^3/uL (150-450); RED BLOOD COUNT 5.07 10^6/uL (3.72-5.28); RED CELL DISTRIBUTION WIDTH 17.1 % (11.5-14.0); SEGMENTED NEUTROPHILS % (AUTO) 74.6 % (42-78); TOTAL CELLS COUNTED % (AUTO) 100 %; WHITE BLOOD COUNT 11.3 10^3/uL (4.0-10.5)
--- NOTE | 2020-01-05 10:44 | RADIOLOGY REPORT (SQ) ---
EXAM DESCRIPTION: CHEST PA/LATERAL IMAGES COMPLETED DATE/TIME: 01/05/2020 10:19 am REASON FOR STUDY: COUGH COMPARISON: None. EXAM PARAMETERS: NUMBER OF VIEWS: two views TECHNIQUE: Digital Frontal and Lateral radiographic views of the chest acquired. RADIATION DOSE: NA LIMITATIONS: none FINDINGS: LUNGS AND PLEURA: No opacities, masses or pneumothorax. No pleural effusion. MEDIASTINUM AND HILAR STRUCTURES: No masses or contour abnormalities. HEART AND VASCULAR STRUCTURES: Heart normal size. No evidence for failure. BONES: No acute findings. HARDWARE: None in the chest. OTHER: No other significant finding. IMPRESSION: NO SIGNIFICANT RADIOGRAPHIC FINDING IN THE CHEST. TECHNICAL DOCUMENTATION: JOB ID: [id number] 2010 [employer]- All Rights Reserved Reading location - IP/workstation name: [email or web address]
[2020-01-05 10:47] LABS: APPEARANCE,URINE SLIGHTLY-CLOUDY; BILIRUBIN,URINE NEGATIVE (NEGATIVE); COLOR,URINE YELLOW; GLUCOSE, URINE NEGATIVE (NEGATIVE); KETONES,URINE NEGATIVE (NEGATIVE); LEUKOCYTE ESTERASE,URINE SMALL (NEGATIVE); NITRITE,URINE NEGATIVE (NEGATIVE); PROTEIN,URINE NEGATIVE (NEGATIVE); URINE SPECIFIC GRAVITY 1.012; UROBILINOGEN,URINE NEGATIVE mg/dL (<2.0)
[2020-01-05 11:08] LABS: ALBUMIN 4.3 g/dL (3.5-5.0); ALKALINE PHOSPHATASE 84 U/L (38-126); ANION GAP 13 (5-19); ASPARTATE AMINO TRANSFERASE 32 U/L (14-36); BILIRUBIN,DIRECT 0.3 mg/dL (0.0-0.4); BILIRUBIN,TOTAL 0.6 mg/dL (0.2-1.3); BLOOD UREA NITROGEN 12 mg/dL (7-20); CALCIUM 9.4 mg/dL (8.4-10.2); CARBON DIOXIDE 27 mmol/L (22-30); CHLORIDE 99 mmol/L (98-107); GLUCOSE 202 mg/dL (75-110); POTASSIUM 4.2 mmol/L (3.6-5.0); TOTAL PROTEIN 7.6 g/dL (6.3-8.2)
== END ==
LOC: OD 09:17
PROVIDERS: ATTEND Nurse Practitioner Family
DX: R50.9 Fever, unspecified (principal); R05 Cough; I10 Essential (primary) hypertension; E11.9 Type 2 diabetes mellitus without complications
CPT/HCPCS: 36415; 71046; 80053; 81001; 84443; 85025; 86140; 87040; 87086